=== PATIENT | female | born 2000 | race Caucasian/White ===

== ENCOUNTER 2022-01-09 19:56 | Emergency (ER) | payer OTHER ==
[~2022-01-09] VITALS: Ht 154.9 cm; Wt 63.4 kg
[2022-01-09] MEDS ORDERED: AMOX-494 MT (22:11)
[2022-01-09 22:31] VITALS: BP 109/78
== END 2022-01-09 22:30 | disposition home or self-care (01) ==
LOC: ER 19:56
DX: A49.1 Streptococcal infection, unspecified site (principal)
CPT/HCPCS: 81025; 99282

== ENCOUNTER 2024-04-19 12:14 | Emergency (ER) | payer SELFPAY ==
[~2024-04-19] VITALS: Ht 152.4 cm; Wt 72.5 kg
[~2024-04-19 12:14] MED LIST: AMOX-494 MT
[2024-04-19 12:32] VITALS: O2SAT 99
[2024-04-19] MEDS: HYDROCODONE/ACETAMINOPHEN 10/325MG TABLET PO ONE (15:45)
[2024-04-19] MEDS: IBUPROFEN 800MG TABLET PO ONE (15:45)
[2024-04-19] MEDS ORDERED: IBUP-2030 MT (15:53)
[2024-04-19] MEDS ORDERED: HYDR-4001 MT (15:53)
[2024-04-19 16:33] VITALS: BP 134/74; PULSE 95; RESP 16; TEMP 36.8; O2SAT 99
== END 2024-04-19 16:30 | disposition home or self-care (01) ==
LOC: ER 12:14
DX: S82.852A Displaced trimalleolar fracture of left lower leg, initial encounter for closed fracture (principal); X50.1XXA Overexertion from prolonged static or awkward postures, initial encounter; Y93.89 Activity, other specified; Y92.89 Other specified places as the place of occurrence of the external cause; Y99.8 Other external cause status
CPT/HCPCS: 73610; 29515; 99283; Z7610